=== PATIENT | male | born 1985 | race Caucasian/White ===

== ENCOUNTER → 2018-07-24 | Outpatient (REF) | payer OTHER ==
[2018-07-25 11:19] LABS: HEPATITIS B CORE ANTIBODY IGM NEGATIVE (NEGATIVE); HEPATITIS B SURFACE ANTIBODY NEGATIVE (POSITIVE); HEPATITIS B SURFACE ANTIGEN NEGATIVE (NEGATIVE); HIV 1&2 SCREEN CENTAUR NEGATIVE (NEGATIVE)
[2018-07-27 11:14] LABS: HEPATITIS C VIRUS ABY INDEX > 11.0 INDEX (<0.8)
== END ==
LOC: M LAB REF 12:08
PROVIDERS: ATTEND Nurse Practitioner Primary Care
DX: Z20.5 Contact with and (suspected) exposure to viral hepatitis (principal); Z72.51 High risk heterosexual behavior

== ENCOUNTER → 2020-07-20 | Outpatient (REF) | payer OTHER | LOC: M LAB REF 11:55 | PROVIDERS: ATTEND Surgery | DX: U07.1 COVID-19 (principal) ==

== ENCOUNTER 2022-09-17 20:23 | Emergency (ER) | payer MEDICAID, OTHER, SELFPAY ==
[~2022-09-17] VITALS: Ht 165.1 cm; Wt 60.0 kg
[2022-09-17] MEDS ORDERED: HALOPERIDOL 5MG/ML 1ML VIAL IM ONE (21:05)
[2022-09-17] MEDS ORDERED: diphenhydrAMINE 50MG/ML VIAL IM ONE (21:05)
[2022-09-17] MEDS ORDERED: LORazepam 2 MG/ML 1ML VIAL IV STA (21:05)
[2022-09-17] MEDS ORDERED: UNRESOLVED CLARIFICATION ENTRY XX STA (21:11)
[2022-09-17 21:38] LABS: HEMATOCRIT 43.8 % (42.0-52.0); HEMOGLOBIN 15.1 g/dl (13.5-17.5); MEAN CORPUSCULAR HEMOGLOBIN 31.8 pg (27.0-33.0); MEAN CORPUSCULAR HGB CONC 34.5 g/dl (32.0-36.5); MEAN CORPUSCULAR VOLUME 92.2 fl (80.0-96.0); PLATELET COUNT, AUTOMATED 329 10^3/uL (150-450); RED BLOOD COUNT 4.75 10^6/uL (4.30-6.10); WHITE BLOOD COUNT 15.1 10^3/uL (4.0-10.0)
[2022-09-17 22:01] LABS: ETHYL ALCOHOL (ETHANOL) < 0.003 % (0.000-0.010)
[2022-09-17 22:02] LABS: ACETAMINOPHEN LEVEL < 2.0 UG/ML (10.0-20.0); SALICYLATE LEVEL < 3.0 MG/DL (<30)
[2022-09-17 22:03] LABS: ALBUMIN 4.3 G/DL (3.2-5.2); ALKALINE PHOSPHATASE 81 U/L (46-116); ALT/SGPT 164 U/L (7.0-40); AST/SGOT 77 U/L (<34); BILIRUBIN,DIRECT 0.2 MG/DL (<0.4); BILIRUBIN,TOTAL 0.5 MG/DL (0.3-1.2); BLOOD UREA NITROGEN 17 MG/DL (9-23); CALCIUM LEVEL 10.2 MG/DL (8.5-10.1); CARBON DIOXIDE LEVEL 25 MMOL/L (20-31); CHLORIDE LEVEL 104 MMOL/L (98-107); CREATININE FOR GFR 0.76 MG/DL (0.70-1.30); GLOMERULAR FILTRATION RATE > 60.0 (>60); GLUCOSE, FASTING 118 MG/DL (60-100); POTASSIUM SERUM 4.2 MMOL/L (3.5-5.1); SODIUM LEVEL 139 MMOL/L (136-145); TOTAL PROTEIN 7.9 G/DL (5.7-8.2)
[2022-09-17 22:36] LABS: BARBITURATES URINE NEGATIVE (NEGATIVE); BENZODIAZEPINES URINE NEGATIVE (NEGATIVE); COCAINE METABOLITE URINE NEGATIVE (NEGATIVE); METHADONE URINE NEGATIVE (NEGATIVE); OPIATES URINE NEGATIVE (NEGATIVE); PHENCYCLIDINE URINE NEGATIVE (NEGATIVE)
[2022-09-17 22:37] LABS: AMPHETAMINES LEVEL URINE POSITIVE (NEGATIVE); CANNABINOIDS URINE POSITIVE (NEGATIVE)
[2022-09-18 13:56] VITALS: BP 131/88
== END 2022-09-18 14:10 | disposition home or self-care (01) ==
LOC: M ED 20:23
DX: F15.10 Other stimulant abuse, uncomplicated (principal); F17.210 Nicotine dependence, cigarettes, uncomplicated; F12.10 Cannabis abuse, uncomplicated; Z88.8 Allergy status to other drugs, medicaments and biological substances
CPT/HCPCS: 80048; 80076; 80143; 80307; 82077; 84443; 85027; 87635; 96372; 96374; 99285; J1200; J1630; J2060

== ENCOUNTER 2023-02-26 18:16 | Emergency (ER) | payer MEDICAID ==
[~2023-02-26] VITALS: Ht 165.1 cm; Wt 64.7 kg
[2023-02-26 18:16] VITALS: BP 116/73; TEMP 99; O2SAT 99
[2023-02-26] MEDS ORDERED: TETRACAINE 0.5% OPHTH SOLN 4ML OD ONE (20:50)
[2023-02-26] MEDS ORDERED: FLUORESCEIN OPHTH 1MG STRIP OD ONE (20:50)
[2023-02-26] MEDS ORDERED: OCUF0.25 OD (21:38)
[2023-02-26] MEDS ORDERED: DOXY-443 PO (21:38)
== END 2023-02-26 21:49 | disposition left against medical advice (07) ==
LOC: M ED 18:16
DX: S05.31XA Ocular laceration without prolapse or loss of intraocular tissue, right eye, initial encounter (principal); Z53.9 Procedure and treatment not carried out, unspecified reason; Y04.0XXA Assault by unarmed brawl or fight, initial encounter; F17.200 Nicotine dependence, unspecified, uncomplicated; F17.290 Nicotine dependence, other tobacco product, uncomplicated; F12.10 Cannabis abuse, uncomplicated; Z88.8 Allergy status to other drugs, medicaments and biological substances

== ENCOUNTER 2023-05-25 09:30 | Inpatient (IN) | payer MEDICAID, OTHER ==
[~2023-05-25 09:30] MED LIST: DOXY-443 PO; OCUF0.25 OD
[2023-05-25 10:15] LABS: HEMATOCRIT 43.2 % (42.0-52.0); HEMOGLOBIN 14.8 g/dl (13.5-17.5); MEAN CORPUSCULAR HEMOGLOBIN 31.3 pg (27.0-33.0); MEAN CORPUSCULAR HGB CONC 34.3 g/dl (32.0-36.5); MEAN CORPUSCULAR VOLUME 91.3 fl (80.0-96.0); PLATELET COUNT, AUTOMATED 258 10^3/uL (150-450); RED BLOOD COUNT 4.73 10^6/uL (4.30-6.10); WHITE BLOOD COUNT 9.2 10^3/uL (4.0-10.0)
[2023-05-25 10:36] LABS: BARBITURATES URINE NEGATIVE (NEGATIVE); BENZODIAZEPINES URINE NEGATIVE (NEGATIVE); COCAINE METABOLITE URINE NEGATIVE (NEGATIVE); METHADONE URINE NEGATIVE (NEGATIVE); OPIATES URINE NEGATIVE (NEGATIVE); PHENCYCLIDINE URINE NEGATIVE (NEGATIVE)
[2023-05-25 10:43] LABS: ETHYL ALCOHOL (ETHANOL) 0.004 % (0.000-0.010)
[2023-05-25 10:45] LABS: ALBUMIN 4.3 G/DL (3.2-5.2); ALKALINE PHOSPHATASE 72 U/L (46-116); ALT/SGPT 206 U/L (7.0-40); AST/SGOT 81 U/L (<34); BILIRUBIN,DIRECT 0.3 MG/DL (<0.4); BILIRUBIN,TOTAL 0.8 MG/DL (0.3-1.2); BLOOD UREA NITROGEN 16 MG/DL (9-23); CALCIUM LEVEL 9.9 MG/DL (8.5-10.1); CARBON DIOXIDE LEVEL 24 MMOL/L (20-31); CHLORIDE LEVEL 107 MMOL/L (98-107); CREATININE FOR GFR 0.64 MG/DL (0.70-1.30); GLOMERULAR FILTRATION RATE > 60.0 (>60); GLUCOSE, FASTING 117 MG/DL (60-100); POTASSIUM SERUM 3.8 MMOL/L (3.5-5.1); SALICYLATE LEVEL < 3.0 MG/DL (<30); SODIUM LEVEL 138 MMOL/L (136-145); TOTAL PROTEIN 7.7 G/DL (5.7-8.2)
[2023-05-25 10:56] LABS: AMPHETAMINES LEVEL URINE POSITIVE (NEGATIVE); CANNABINOIDS URINE POSITIVE (NEGATIVE)
[2023-05-25] MEDS ORDERED: MED REC IN PROGRESS XX SCH (11:50)
[2023-05-26] MEDS: OLANZapine ORAL DISINTEGRATING TAB 5MG PO ONE (07:55)
[2023-05-26] MEDS ORDERED: ACETAMINOPHEN TAB 650MG DOSE (2X325MG) PO PRN (14:05)
[2023-05-26] MEDS ORDERED: MOM 30ML SUSPENSION UDC PO PRN (14:05)
[2023-05-26] MEDS ORDERED: IBUPROFEN 400MG TAB PO PRN (14:05)
[2023-05-26] MEDS ORDERED: MAALOX 30 ML SUSP *UDC PO PRN (14:05)
[2023-05-27 06:23] VITALS: BP 133/60; TEMP 98.1; O2SAT 97
[2023-05-27] MEDS: MUPIROCIN 2% OINT 22 GM TUBE TOP SCH (10:11)
[2023-05-27] MEDS ORDERED: MED HIST COMMENT (15:48)
[2023-05-27] MEDS ORDERED: MED REC CURRENTLY UNOBTAINABLE XX SCH (15:50)
[2023-05-28 06:15] VITALS: BP 111/75; TEMP 98.9; O2SAT 99
[2023-05-29 06:11] VITALS: BP 104/73; TEMP 99; O2SAT 98
[2023-05-29] MEDS: OLANZapine 5 MG TAB PO SCH (09:00)
[2023-05-29 17:26] VITALS: BP 136/69; TEMP 98.5
[2023-05-30 19:11] VITALS: BP 97/52; TEMP 97.8; O2SAT 99
[2023-05-31 07:05] VITALS: BP 106/57; TEMP 97.9; O2SAT 99
[2023-05-31 19:11] VITALS: BP 123/72; TEMP 98.2
[2023-06-01 06:25] VITALS: BP 123/66; TEMP 97.7; O2SAT 98
[2023-06-01 16:17] VITALS: BP 100/53; TEMP 97.3
[2023-06-01] MEDS: OLANZapine 10 MG TAB PO SCH (21:14)
[2023-06-02 06:57] VITALS: BP 103/67; TEMP 98.2
[2023-06-03 06:48] VITALS: BP 109/72; TEMP 97.6; O2SAT 98
[2023-06-03 07:28] LABS: CHOLESTEROL RISK RATIO 2.72 (<5); HDL CHOLESTEROL 59.1 MG/DL (>40); LDL CHOLESTEROL 88.9 MG/DL (<100); NON-HDL-C 101.9 MG/DL
[2023-06-03 16:49] VITALS: BP 104/62; TEMP 97.8; O2SAT 100
[2023-06-03] MEDS: traZODone 50 MG TAB PO PRN (20:15)
[2023-06-04 06:47] VITALS: BP 146/68; TEMP 97.9; O2SAT 98
[2023-06-05 06:59] VITALS: BP 109/56; TEMP 98; O2SAT 96
[2023-06-05] MEDS ORDERED: HOME MED LIST COMPLETE! XX SCH (18:05)
[2023-06-05 18:35] VITALS: BP 135/71; TEMP 98.7; O2SAT 100
[2023-06-05] MEDS: OLANZapine 2.5MG TABLET PO SCH (20:10)
[2023-06-06 06:32] VITALS: BP 110/70; TEMP 97.9; O2SAT 98
[2023-06-06 17:20] VITALS: BP 116/57; TEMP 96.8; O2SAT 97
[2023-06-07 06:06] VITALS: BP 114/70; TEMP 98; O2SAT 97
[2023-06-07] MEDS: OLANZapine ORAL DISINTEGRATING TAB 5MG PO PRN (08:12)
[2023-06-07] MEDS ORDERED: BENZTROPINE 2 MG TAB PO PRN (10:45)
[2023-06-07] MEDS: HALOPERIDOL DECANOATE 100 MG/ML 1ML VIAL IM SCH (17:06)
[2023-06-07 18:24] VITALS: BP 120/66; TEMP 97.8
[2023-06-08 06:31] VITALS: BP 115/71; TEMP 98.2; O2SAT 100
[2023-06-08] MEDS: NICOTINE POLACRILEX 2 MG GUM PO PRN (12:59)
[2023-06-08 17:31] VITALS: BP 120/70; TEMP 97.5
[2023-06-09 06:43] VITALS: BP 114/77; TEMP 98.2; O2SAT 100
[2023-06-09 16:14] VITALS: BP 117/75; TEMP 97; O2SAT 98
[2023-06-10 07:03] VITALS: BP 119/77; TEMP 98.3; O2SAT 99
[2023-06-10] MEDS: HALOPERIDOL DECANOATE 100 MG/ML 1ML VIAL IM ONE (10:15)
[2023-06-11 06:30] VITALS: BP 121/77; TEMP 97.3; O2SAT 99
[2023-06-12 06:38] VITALS: BP 131/70; TEMP 96.9; O2SAT 100
[2023-06-12 18:29] VITALS: BP 129/69; TEMP 97.9; O2SAT 99
[2023-06-13 06:17] VITALS: BP 113/74; TEMP 98; O2SAT 98
[2023-06-13 18:43] VITALS: BP 104/77; TEMP 98.4; O2SAT 99
[2023-06-13] MEDS: diphenhydrAMINE 25MG CAP PO PRN (20:05)
[2023-06-14 06:41] VITALS: BP 121/75; TEMP 98.6; O2SAT 98
[2023-06-14 18:29] VITALS: BP 123/89; TEMP 98.4
[2023-06-15 06:40] VITALS: BP 110/65; TEMP 97.6; O2SAT 94
[2023-06-15] MEDS ORDERED: HALO10AM IM (09:59)
[2023-06-15] MEDS ORDERED: TRAZ-252 PO (09:59)
[2023-06-15] MEDS ORDERED: DIPH-435 PO (09:59)
[2023-06-15] MEDS ORDERED: NICO2GUM PO (09:59)
[2023-06-15] MEDS ORDERED: HALO5TAB33 PO (09:59)
== END 2023-06-15 11:01 | disposition home or self-care (01) | DRG 750 ==
LOC: M ED 09:30 → M ED INP 05-26 14:01 → M PSY 05-26 17:07
PROVIDERS: ADMIT Student in an Organized Health Care Education/Training Program; ATTEND Student in an Organized Health Care Education/Training Program
DX: F20.0 Paranoid schizophrenia (principal); F15.150 Other stimulant abuse with stimulant-induced psychotic disorder with delusions; R45.850 Homicidal ideations; R74.01 Elevation of levels of liver transaminase levels; Z59.02 Unsheltered homelessness; Z88.8 Allergy status to other drugs, medicaments and biological substances; F17.200 Nicotine dependence, unspecified, uncomplicated; L98.9 Disorder of the skin and subcutaneous tissue, unspecified; F60.0 Paranoid personality disorder; Z91.51 Personal history of suicidal behavior